=== PATIENT | male | born 1960 | race African-American/Black ===

== ENCOUNTER 2017-02-10 21:42 | Inpatient (IN) | payer OTHER ==
[~2017-02-10] VITALS: Ht 180.3 cm; Wt 80.5 kg
[~2017-02-10 21:42] MED LIST: AMLO5TAB4
[2017-02-10 21:44] VITALS: Ht 180.3 cm; Wt 80.5 kg
[2017-02-10] MEDS ORDERED: SOD CHLORIDE 0.9% 1,000 ML IV STA (21:50)
[2017-02-10] MEDS ORDERED: DEXAMETHASONE 10 MG/ML 1 ML INJ IV ONE (22:00)
[2017-02-10] MEDS ORDERED: RACEPINEPHRINE 2.25%(NEB) 0.5 ML AMP HHN ONE (22:00)
--- NOTE | 2017-02-10 22:09 | RADRPT ---
PROCEDURE: XR Chest. CLINICAL INDICATION: Shortness of breath. Anaphylaxis. TECHNIQUE: Single frontal view. COMPARISON: None. FINDINGS: There is mild atelectasis at the lung bases, left worse than right. The lungs are otherwise clear. The heart size is normal. There is calcification in the aorta consistent with atherosclerosis. There is no pleural effusion. There is no pneumothorax. IMPRESSION: 1. Mild atelectasis at the lung bases, left worse than right. 2. Atherosclerosis. 3. Otherwise normal chest x-ray. RPTAT: QQ .Mario Christy MD, MD Date Time Electronically viewed and signed by .Mario Christy MD, on 02/10/2017 22:09 .R/
[2017-02-10] MEDS ORDERED: FAMOTIDINE 20 MG INJ IV ONE (22:30)
[2017-02-10 22:33] LABS: ADD SCAN DIFF NO
[2017-02-10 22:34] LABS: ABNORMAL IP MESSAGE 1; BASOPHILS % 0.2 % (0.0-2.0); EOSINOPHILS # 0.2 10^3/ul (0.0-0.5); EOSINOPHILS % 1.5 % (0.0-7.0); HEMATOCRIT 47.1 % (42.0-52.0); HEMOGLOBIN 15.3 g/dl (14.0-18.0); LYMPHOCYTES # 5.1 10^3/ul (0.8-2.9); LYMPHOCYTES % 48.5 % (15.0-51.0); MEAN CORPUSCULAR HEMOGLOBIN 28.2 pg (29.0-33.0); MEAN CORPUSCULAR HGB CONC 32.5 g/dl (32.0-37.0); MEAN CORPUSCULAR VOLUME 86.7 fl (82.0-101.0); MEAN PLATELET VOLUME 9.6 fl (7.4-10.4); MONOCYTE # 0.6 10^3/ul (0.3-0.9); MONOCYTES % 5.8 % (0.0-11.0); NEUTROPHIL # 4.6 10^3/ul (1.6-7.5); NEUTROPHILS % 43.6 % (39.0-77.0); PLATELET COUNT 316 10^3/UL (140-415); RED BLOOD COUNT 5.43 10^6/ul (4.70-6.10); RED CELL DISTRIBUTION WIDTH 12.5 % (11.5-14.5); WHITE BLOOD COUNT 10.4 10^3/ul (4.8-10.8)
[2017-02-10 22:55] LABS: CREATININE 1.32 mg/dl (0.61-1.24)
[2017-02-10 22:56] LABS: ALBUMIN/GLOBULIN RATIO 1.05; BILIRUBIN,INDIRECT 0.3 mg/dl (0-1.1); BILIRUBIN,TOTAL 0.3 mg/dl (0.2-1.3); TOTAL PROTEIN 7.8 g/dl (6.1-8.1)
[2017-02-10 22:57] LABS: CALCIUM 9.1 mg/dl (8.4-10.2)
[2017-02-10] MEDS ORDERED: POTASSIUM CHLORIDE (SR) 20 MEQ TAB PO STA (23:06)
[2017-02-10 23:07] LABS: POTASSIUM 2.9 mmol/L (3.5-5.1)
[2017-02-10] MEDS ORDERED: DIPHENHYDRAMINE 50 MG INJ ONE (23:14)
[2017-02-10] MEDS ORDERED: POTASSIUM CHLORIDE 50 ML ONE (23:16)
--- NOTE | 2017-02-10 23:16 | ERA ---
ER Documentation Chief Complaint Date/Time DATE: 02/10/17 TIME: 23:09 Chief Complaint FACIAL SWELLING, anaphylactic reaction s/p eating almonds HPI This is a 56-year-old male who presents to the emergency room for evaluation of allergic reaction. This patient states that he ate almonds with a seasoning on them, and also had a Kiwi. He stated he started to become itchy, and noticed that his tongue started to swell up. He became short of breath. #1 was called , when EMS arrived they stated this patient was in severe respiratory distress with diffuse wheezing. The care of this patient is 0.5 mg of intramuscular epinephrine. A establish an IV line to give the patient 15 mg of Benadryl. The patient was placed on oxygen and was transferred to the ER for further evaluation. The patient does state that his symptoms have improved, but he is still mildly short of breath. ROS All systems reviewed and are negative except as per history of present illness. Medications Home Meds Discontinued Reported Medications Amlodipine Besylate* (Norvasc*) 5 Mg Tablet 04/20/11 Allergies Allergies: Coded Allergies: No Known Allergy (Verified , 02/10/17) PMhx/Soc History of Surgery: Yes (hernia repair) Anesthesia Reaction: No Hx Neurological Disorder: No Hx Respiratory Disorders: No Hx Cardiac Disorders: Yes (HTN) Hx Psychiatric Problems: No Hx Miscellaneous Medical Probl: No Hx Alcohol Use: Yes Hx Substance Use: No Hx Tobacco Use: Yes Smoking Status: Light tobacco smoker Physical Exam Vitals Vital Signs Date Time Temp Pulse Resp B/P Pulse Ox O2 Delivery O2 Flow Rate FiO2 02/10/17 22:06 100 15.0 02/10/17 21:56 84 25 100 Non Rebreather Mask 15.0 02/10/17 21:44 98.0 98 24 155/105 100 Physical Exam INITIAL VITAL SIGNS: Reviewed by me GENERAL: The patient is well developed and appropriate for usual state of health in no apparent distress HEENT: Tongue swelling, lip swelling, pharyngeal edema noted NECK: C-spine is soft and supple, there is no meningismus. There is no cervical lymphadenopathy. LUNGS: Clear to auscultation bilaterally. There are no rales, wheezes or rhonchi. HEART: Tachycardic, no murmurs, clicks, rubs or gallops. ABDOMEN: Soft, non-tender, non-distended. There are bowel sounds in all four quadrants. No rebound or guarding. EXTREMITIES: There is no peripheral cyanosis or edema. No focal swelling or erythema. NEUROLOGICAL: The patient moves all four extremities with 5/5 strength. Cranial nerves II - XII are intact. Normal gait. Alert and oriented SKIN: There is no apparent rash or petechiae. HEME/LYMPHATIC: There is no evidence of excessive bruising or lymphedema. PSYCHIATRIC: The patient does not appear anxious or depressed. Result Diagram: 02/10/17214902/10/172149 Results 24 hrs Laboratory Tests Test 02/10/17 21:50 White Blood Count 10.410^3/ul Red Blood Count 5.4310^6/ul Hemoglobin 15.3g/dl Hematocrit 47.1% Mean Corpuscular Volume 86.7fl Mean Corpuscular Hemoglobin 28.2pg Mean Corpuscular Hemoglobin Concent 32.5g/dl Red Cell Distribution Width 12.5% Platelet Count 10563^3/UL Mean Platelet Volume 9.6fl Neutrophils % 43.6% Lymphocytes % 48.5% Monocytes % 5.8% Eosinophils % 1.5% Basophils % 0.2% Nucleated Red Blood Cells % 0.0/100WBC Neutrophils # 4.610^3/ul Lymphocytes # 5.110^3/ul Monocytes # 0.610^3/ul Eosinophils # 0.210^3/ul Basophils # 0.010^3/ul Nucleated Red Blood Cells # 0.010^3/ul Sodium Level 139mmol/L Potassium Level 2.9mmol/L Chloride Level 100mmol/L Carbon Dioxide Level 26mmol/L Anion Gap 16 Blood Urea Nitrogen 21mg/dl Creatinine 1.32mg/dl Glucose Level 200mg/dl Calcium Level 9.1mg/dl Total Bilirubin 0.3mg/dl Direct Bilirubin 0.00mg/dl Indirect Bilirubin 0.3mg/dl Aspartate Amino Transf (AST/SGOT) 34IU/L Alanine Aminotransferase (ALT/SGPT) 40IU/L Alkaline Phosphatase 135IU/L Total Protein 7.8g/dl Albumin 4.0g/dl Globulin 3.80g/dl Albumin/Globulin Ratio 1.05 Current Medications Medications (Trade) Dose Ordered Sig/Kacey Route PRN Reason Start Time Stop Time Status Last Admin Dose Admin Dexamethasone (Decadron) 10 mg ONCE ONCE IV 02/10/17 22:00 02/10/17 22:01 DC 02/10/17 21:55 Epinephrine 0.5 ml 0.5 ml ONCE ONCE HHN 02/10/17 22:00 02/10/17 22:01 DC 02/10/17 21:56 Sodium Chloride (NS) 1,000 ml @ 1,000 mls/hr Q1H STAT IV 02/10/17 21:50 02/10/17 22:49 DC 02/10/17 21:57 Famotidine (Pepcid Iv) 20 mg ONCE ONCE IV 02/10/17 22:30 02/10/17 22:31 DC 02/10/17 22:41 Potassium Chloride (Klor-Con 20) 20 meq ONCE STAT PO 02/10/17 23:06 02/10/17 23:07 DC Procedures/MDM Chest X-ray 1V Interpreted by me: Soft Tissue: No acute abnormalities Bones: No acute abnormalities Mediastinum/Cardiac Silhouette/Lungs: [No acute abnormalities] This [age]-year-old male presents to the emergency room for evaluation of allergic reaction. This patient was having anaphylactic reaction with edema of the upper oropharynx and tongue. I advised the patient he needs to be intubated for airway protection and for prevention of decompensation from further swelling. The patient adamantly refused to be intubated. He is alert oriented to person place and time. I discussed the risk of not being intubated including risk of from his fixation from anaphylaxis. The patient verbalized understanding and stated that he does not want to be intubated at this time. This patient was given Solu-Medrol, Decadron, Benadryl, IV fluids and Pepcid. The patient has had a mild decrease in the inflammation of his oropharynx however given his critical condition with possible rapid decompensation this patient will be placed in the intensive care unit at this time under the care of her panel physician Dr. Davis. This patient was found to have a potassium 2.9 and was given 40 mg of potassium via IV Critical Care: Excluding all billable procedures Time: 33 minutes Treatments/Evaluations: Close monitoring and treatment of unstable vital signs, cardiorespiratory, and neurologic status, while maintaining tight balance of fluid, respiratory, and cardiac interventions, multiple bedside evaluations, aggressive management of anaphylaxis per. Departure Diagnosis: Primary Impression: Acute anaphylaxis Additional Impressions: Hypokalemia Renal insufficiency Condition: Serious YASH REY DO Feb 10, 2017 23:16
[2017-02-10] MEDS ORDERED: DIPHENHYDRAMINE 50 MG INJ IV ONE (23:30)
[2017-02-10] MEDS ORDERED: POTASSIUM CHLORIDE 250 ML IVPB ONE (23:30)
[2017-02-10 23:50] VITALS: TEMP 98.3
[2017-02-11] VITALS (11 sets, daily range): BP systolic 125–175; BP diastolic 63–110; PULSE 82–111; RESP 11–24
[2017-02-11] MEDS ORDERED: LORAZEPAM 2 MG INJ IV PRN
[2017-02-11] MEDS ORDERED: EPINEPHrine 1 MG INJ SC PRN
[2017-02-11] MEDS ORDERED: ALBUTEROL/IPRATROPIUM (NEB) 3 ML AMP NEB PRN
[2017-02-11] MEDS ORDERED: FUROSEMIDE 40 MG INJ IV ONE
[2017-02-11] MEDS ORDERED: morphine 2 MG INJ IV PRN
[2017-02-11] MEDS ORDERED: ONDANSETRON 4 MG INJ IV PRN
[2017-02-11] MEDS: DEXAMETHASONE 10 MG/ML 1 ML INJ IV SCH ×3 (05:43→17:09)
[2017-02-11] MEDS: DIPHENHYDRAMINE 50 MG INJ IV SCH ×2 (05:43)
[2017-02-11] MEDS ORDERED: hydrALAzine 20 MG INJ IV ONE (06:00)
--- NOTE | 2017-02-11 07:06 | HP ---
DATE OF ADMISSION: 02/10/2017 TIME SEEN: 2330. CHIEF COMPLAINT: Lips and facial swelling. HISTORY OF PRESENT ILLNESS: The patient is a 56-year-old male with no significant past medical histo ry, who presented to the emergency department by ambulance for swollen lips, face, tongue and breath ing difficulty. Currently the patient is sleepy/drowsy from the Benadryl that he received, but he t old me that he ate kiwi fruit and almonds before his symptoms started. He stated that he had eaten in both kiwi fruit and almonds before, but the almonds that he ate had some seasonings on them. When the EMS arrived, reportedly, the patient was in severe respiratory distress and was wheezing. When he arrived to the ER he was also noted to have difficulty breathing, with initial O2 saturation s in the 80s. The patient was placed on a nonrebreather mask and was saturating 95%. Dr. Liu, the ER physician, told the patient that he will benefit from intubation; however, the patient declin ed. He received epinephrine, 10 mg of IV Decadron and Benadryl, and is currently admitted to the [facility]. His lips are swollen and he also has a minimally swollen tongue, but he denied any difficulty br eathing. He is able to speak, even though he is sleepy from the Benadryl and he also denied difficu lty swallowing his saliva. He is currently saturating in the high 90s on room air. His initial pot assium was 2.9, with BUN 21, creatinine 1.32. Otherwise his basic CBC and CMP were within acceptabl e range. Initial chest x-ray shows some mild atelectasis at the lung bases, left worse than the rig ht, otherwise his lungs were clear, with no pleural effusion or pneumothorax. REVIEW OF SYSTEMS: A 12-point review of systems was performed and negative except as per the HPI. PAST MEDICAL HISTORY: Denies. PAST SURGICAL HISTORY: Hernia repair. ALLERGIES: NUTS. HOME MEDICATIONS: None. PHYSICAL EXAMINATION: VITAL SIGNS: Blood pressure 145/92, heart rate 91, respiratory rate 20, temperature 98.3, oxygen sa turation 98% on room air. GENERAL: The patient is sleepy, but arousable and answering questions. HEENT: No obvious head deformity. His pupils are reactive to light. His lips are swollen and he a lso has minimal swelling of his tongue. CARDIOVASCULAR: Regular rate and rhythm. LUNGS: Clear anteriorly. ABDOMEN: Soft, nontender, nondistended. Positive bowel sounds. EXTREMITIES: No edema. NEUROLOGIC: No focal deficits. LABORATORY: Potassium 2.9, BUN 21, creatinine 1.32, alkaline phosphatase 135. Otherwise CBC and CM P are within normal limits. IMAGING: Chest x-ray with results as mentioned in the HPI. IMPRESSION: 1. ANAPHYLACTIC REACTION, MOST LIKELY SECONDARY TO SEASONED ALMONDS. 2. Hypokalemia. 3. Presumed acute kidney injury. Will monitor the patient in the ICU setting for now. He will receive steroids, Benadryl and as need ed epinephrine. Will monitor closely for any signs of inability to breathe. Will also monitor for d ifficulty swallowing closely. Will correct electrolytes as needed. Will avoid nephrotoxins and mon itor his kidney function closely, but note that he did receive a dose of Lasix to help with the swel ling. Additional renal workup, including renal ultrasound and nephrology consult as needed. Further workup and management per clinical course. Critical time spent was about 40 minutes. Dictated By: NIKKI LOPES/TALHA Conf#: [id number] DID#: [id number]
[2017-02-11] MEDS ORDERED: HEPARIN 5,000 UNIT/0.5 ML VIAL SC SCH (09:00)
[2017-02-11] MEDS ORDERED: hydrALAzine 20 MG INJ IV PRN ×2 (10:00)
[2017-02-11] MEDS ORDERED: METOPROLOL 25 MG TAB PO ONE (13:30)
[2017-02-11] MEDS ORDERED: DIPHENHYDRAMINE 50 MG INJ IV SCH (14:00)
[2017-02-11 15:51] LABS: ADD SCAN DIFF NO
[2017-02-11 15:54] LABS: BASOPHILS % 0.1 % (0.0-2.0); HEMOGLOBIN 14.5 g/dl (14.0-18.0); LYMPHOCYTES # 1.1 10^3/ul (0.8-2.9); LYMPHOCYTES % 9.4 % (15.0-51.0); MEAN CORPUSCULAR HEMOGLOBIN 28.2 pg (29.0-33.0); MEAN CORPUSCULAR VOLUME 85.6 fl (82.0-101.0); MEAN PLATELET VOLUME 9.4 fl (7.4-10.4); MONOCYTE # 0.1 10^3/ul (0.3-0.9); MONOCYTES % 0.8 % (0.0-11.0); NEUTROPHIL # 9.9 10^3/ul (1.6-7.5); NEUTROPHILS % 89.3 % (39.0-77.0); PLATELET COUNT 304 10^3/UL (140-415); RED BLOOD COUNT 5.14 10^6/ul (4.70-6.10); RED CELL DISTRIBUTION WIDTH 12.5 % (11.5-14.5); WHITE BLOOD COUNT 11.1 10^3/ul (4.8-10.8)
[2017-02-11 16:14] LABS: ALBUMIN 3.8 g/dl (3.3-4.9); BILIRUBIN,INDIRECT 0.2 mg/dl (0-1.1); BILIRUBIN,TOTAL 0.2 mg/dl (0.2-1.3); CALCIUM 9.2 mg/dl (8.4-10.2); CREATININE 0.8 mg/dl (0.61-1.24); MAGNESIUM 1.9 mg/dl (1.7-2.5); POTASSIUM 3.7 mmol/L (3.5-5.1); TOTAL PROTEIN 7.6 g/dl (6.1-8.1)
--- NOTE | 2017-02-12 16:49 | DS ---
Date/Time of Note Date/Time of Note DATE: 02/12/17 TIME: 16:48 Discharge Summary Admission/Discharge Info Admit Date/Time Feb 10, 2017 at 23:43 Discharge Date/Time Feb 11, 2017 at 19:59 Final Diagnosis Pt left AMA Hospital Course The patient is a 56-year-old male with no significant past medical history, who presented to the emergency department by ambulance for swollen lips, face, tongue and breathing difficulty. Currently the patient is sleepy/drowsy from the Benadryl that he received, but he told me that he ate kiwi fruit and almonds before his symptoms started. He stated that he had eaten in both kiwi fruit and almonds before, but the almonds that he ate had some seasonings on them. When the EMS arrived, reportedly, the patient was in severe respiratory distress and was wheezing. When he arrived to the ER he was also noted to have difficulty breathing, with initial O2 saturations in the 80s. The patient was placed on a nonrebreather mask and was saturating 95%. Dr. Liu, the ER physician, told the patient that he will benefit from intubation; however, the patient declined. He received epinephrine, 10 mg of IV Decadron and Benadryl, and is currently admitted to the ICU. His lips are swollen and he also has a minimally swollen tongue, but he denied any difficulty breathing. He is able to speak, even though he is sleepy from the Benadryl and he also denied difficulty swallowing his saliva. He is currently saturating in the high 90s on room air. His initial potassium was 2.9, with BUN 21, creatinine 1.32. Otherwise his basic CBC and CMP were within acceptable range. Initial chest x- ray shows some mild atelectasis at the lung bases, left worse than the right, otherwise his lungs were clear, with no pleural effusion or pneumothorax. Home Meds Discontinued Reported Medications Amlodipine Besylate* (Norvasc*) 5 Mg Tablet 04/20/11 KIERAN KRISHNAMURTHY Feb 12, 2017 16:49
--- NOTE | 2017-02-12 16:51 | PN ---
DATE: 02/11/2017 SUBJECTIVE: The patient is somewhat lethargic but alert. Has less swelling symptoms, being evaluat ed by the speech therapy team presently. Still on IV steroids as well. OBJECTIVE: VITAL SIGNS: Stable, although blood pressure is in the 170 range systolic. GENERAL: The patient is lying in bed, answering questions appropriately, slightly lethargic but jaziel rt. HEENT: Pupils equal, round, reactive to light. Extraocular muscles are intact. Less swelling of t he lips and minimal swelling of his tongue. NECK: Supple, no thyromegaly. LUNGS: Clear to auscultation bilaterally. CARDIOVASCULAR: S1, S2 heard. No rubs or gallops. ABDOMEN: Soft, nontender, nondistended. Normal bowel sounds. No rebound or guarding. MUSCULOSKELETAL: No lower extremity edema bilaterally. NEUROLOGIC: No focal deficits. LABORATORY DATA: There is no new CBC or basic metabolic panel from this morning. ASSESSMENT AND PLAN: A 56-year-old male with no past medical history who presents with swollen lips , face, tongue, breathing difficulty with signs of anaphylactic reaction secondary to seasoned almon ds. 1. The patient was swelling anaphylactic reaction again improving. The patient did receive epineph rine, Benadryl and Decadron. Continue Decadron and Benadryl for now. Monitor for signs of any swel ling. Follow up speech therapy recommendations. If he passes speech evaluation, we will cautiously start diet based on their recommendations. 2. Deep venous thrombosis prophylaxis. Heparin subcutaneously. 3. Gastrointestinal prophylaxis. Add Protonix. Dictated By: KIERAN ENCISO Conf#: [id number] DID#: [id number]
== END 2017-02-11 19:59 | disposition left against medical advice (07) | DRG 916 ==
LOC: E/R 21:42 → ICU 23:43 → PP2 02-11 04:00 → UNDODISIN 02-11 12:40
PROVIDERS: ADMIT Internal Medicine; ATTEND Internal Medicine
DX: T78.05XA Anaphylactic reaction due to tree nuts and seeds, initial encounter (principal); E87.6 Hypokalemia
CPT/HCPCS: 71010; 80053; 83735; 85025; 92610; 94664; 96374; 96375; J0360; J1100; J1200; J1644; J3480; J7030

== ENCOUNTER 2017-08-08 03:28 | Emergency (ER) | payer OTHER ==
[~2017-08-08] VITALS: Ht 172.7 cm; Wt 81.5 kg
[2017-08-08 03:32] VITALS: Ht 172.7 cm; Wt 81.5 kg
[2017-08-08] MEDS ORDERED: ELIM TOP (06:13)
--- NOTE | 2017-08-08 06:29 | ERD ---
ER Documentation Chief Complaint Date/Time DATE: 08/08/17 TIME: 06:17 Chief Complaint rash on olimpia forearms, pt thinks its scabies HPI This is a 57-year-old male presenting to emergency department with pruritic rash to bilateral forearms. Patient states rash developed yesterday. Recently was incarcerated 3 days ago and states he has "been home" for 2 days. No sick contacts. Patient is here with spouse who does not have similar symptoms. Rash has not spread but patient states itching is severe at times. Patient took Benadryl orally with some relief of itching. No fevers or chills. No recent outdoor exposure. Patient's only known allergy is to almonds. ROS All systems reviewed and are negative except as per history of present illness. Medications Home Meds Active Scripts Permethrin* (Elimite*) 5% Cr, 1 APPLIC TOP ONCE, #1 TUB Prov:TAM BENJAMIN Fabian [employer] 08/08/17 Allergies Allergies: Coded Allergies: kiwi (Verified Allergy, Severe, anaphylaxis, 02/11/17) Uncoded Allergies: NUTS (Allergy, Severe, 02/11/17) PMhx/Soc History of Surgery: Yes (HERNIA REPAIR) Anesthesia Reaction: No Hx Neurological Disorder: No Hx Respiratory Disorders: No Hx Cardiac Disorders: Yes (HTN) Hx Psychiatric Problems: No Hx Miscellaneous Medical Probl: No Hx Alcohol Use: Yes Hx Substance Use: No Hx Tobacco Use: Yes Smoking Status: Current every day smoker Physical Exam Vitals Vital Signs Date Time Temp Pulse Resp B/P Pulse Ox O2 Delivery O2 Flow Rate FiO2 08/08/17 03:32 97.4 108 20 158/91 97 Physical Exam Const: No acute distress, alert Head: Atraumatic Eyes: Normal Conjunctiva ENT: Normal External Ears, Nose and Mouth. Neck: Full range of motion..~ No meningismus. Resp: Clear to auscultation bilaterally Cardio: Regular rate and rhythm, no murmurs Abd: Soft, non tender, non distended. Normal bowel sounds Skin: Small erythematous papules linearly scattered over ventral aspect of bilateral forearms. Back: No midline or flank tenderness Ext: No cyanosis, or edema Neur: Awake and alert Psych: Normal Mood and Affect Procedures/MDM MDM: 57 year old male presents to ER with rash to bilateral forearms. Patient was recently incarcerated 3 days ago. Patient states rash developed yesterday. Patient is afebrile and vital signs are stable. No fevers or chills. Rash is localized to ventral aspect of bilateral forearms. Rashes and linear pattern suspicious for scabies. Patient will be treated for the likely diagnosis of scabies. Patient for bacterial infection. Patient is appropriate for outpatient management and will be given prescription for permethrin. Patient instructed to follow-up with primary care provider in the next 2-3 days for reassessment and additional management. Resources provided. Return to ED for any high fever, chest pain, difficulty breathing, shortness breath, wheezing, vomiting, diarrhea, abdominal pain or any new or worsening symptoms. Patient verbalizes understanding. All questions answered at discharge. Patient discharged in compliance with the [facility] treat and release policy. Disclaimer: Inadvertent spelling and grammatical errors are likely due to EHR/ dictation software use and do not reflect on the overall quality of patient care. Also, please note that the electronic time recorded on this note does not necessarily reflect the actual time of the patient encounter. Departure Diagnosis: Primary Impression: Rash Condition: Stable Patient Instructions: Scabies Referrals: [facility] YOU HAVE RECEIVED A MEDICAL SCREENING EXAM AND THE RESULTS INDICATE THAT YOU DO NOT HAVE A CONDITION THAT REQUIRES URGENT TREATMENT IN THE EMERGENCY DEPARTMENT. FURTHER EVALUATION AND TREATMENT OF YOUR CONDITION CAN WAIT UNTIL YOU ARE SEEN IN YOUR DOCTORS OFFICE WITHIN THE NEXT 1-2 DAYS. IT IS YOUR RESPONSIBILITY TO MAKE AN APPOINTMENT FOR FOLOW-UP CARE. IF YOU HAVE A PRIMARY DOCTOR --you should call your primary doctor and schedule an appointment IF YOU DO NOT HAVE A PRIMARY DOCTOR YOU CAN CALL OUR PHYSICIAN REFERRAL HOTLINE AT IF YOU CAN NOT AFFORD TO SEE A PHYSICIAN YOU CAN CHOSE FROM THE FOLLOWING [facility] [address] [facility]. [facility] [address] [facility]. [facility] [address] [facility] [address] [facility]. [facility] [address] [facility]. [facility]. [address] [facility]. [facility] YOU HAVE RECEIVED A MEDICAL SCREENING EXAM AND THE RESULTS INDICATE THAT YOU DO NOT HAVE A CONDITION THAT REQUIRES URGENT TREATMENT IN THE EMERGENCY DEPARTMENT. FURTHER EVALUATION AND TREATMENT OF YOUR CONDITION CAN WAIT UNTIL YOU ARE SEEN IN YOUR DOCTORS OFFICE WITHIN THE NEXT 1-2 DAYS. IT IS YOUR RESPONSIBILITY TO MAKE AN APPOINTMENT FOR FOLOW-UP CARE. IF YOU HAVE A PRIMARY DOCTOR --you should call your primary doctor and schedule and appointment IF YOU DO NOT HAVE A PRIMARY DOCTOR YOU CAN CALL OUR PHYSICIAN REFERRAL HOTLINE AT . IF YOU CAN NOT AFFORD TO SEE A PHYSICIAN YOU CAN CHOSE FROM THE FOLLOWING [facility] INSTITUTIONS: [facility] [address] [place] [address] [facility] [address] [place] [address] [facility] [address] [place] [address] Additional Instructions: Call your primary care doctor TOMORROW for an appointment during the next 2-3 days.See the doctor sooner or return here if your condition worsens before your appointment time. Return to ED for any high fever, chest pain, difficulty breathing, shortness breath, wheezing, vomiting, diarrhea, abdominal pain or any new or worsening symptoms. TAM BENJAMIN NP Aug 08, 2017 06:27
== END 2017-08-08 06:37 | disposition home or self-care (01) ==
LOC: FTE 03:28
DX: R21 Rash and other nonspecific skin eruption (principal); I10 Essential (primary) hypertension; F17.210 Nicotine dependence, cigarettes, uncomplicated
CPT/HCPCS: 99283

== ENCOUNTER 2018-08-15 21:39 | Emergency (ER) | END 2018-08-16 00:10 | disposition home or self-care (01) ==